=== PATIENT | male | born 1960 | race Caucasian/White ===

== ENCOUNTER 2017-06-20 23:52 | Observation (INO) ==
[2017-06-21 02:40] LABS: Basophils # 0.1 10*3/uL (0.0-0.2); Basophils % 0.6 % (0.0-0.8); Eosinophils # 0.4 10*3/uL (0.0-0.87); Eosinophils % 2.9 % (0.00-10.9); Hematocrit 39.3 VOL% (42.0-52.0); Hemoglobin 12.8 GM/DL (14.0-18.0); Immature Granulocytes % 0.7 %; Lymphocytes % 14.4 % (21.2-54.2); Mean Corpuscular HGB Conc 32.6 GM/DL (32-36); Mean Corpuscular Hemoglobin 27 PG (27-34); Mean Corpuscular Volume 84.2 FL (87-102); Mean Platelet Volume 9.7 FL (9.6-12.0); Monocytes # 1.3 10*3/uL (0.11-0.8); Monocytes % 9.4 % (1.7-12.7); Neutrophils # 9.8 10*3/uL (1.4-7.4); Platelet Count 256 T/CUMM (130-400); Red Blood Count 4.67 MC/CUMM (3.8-5.5); Red Cell Distribution Width 13.6 % (9.3-17.3); White Blood Count 13.6 T/CUMM (4-12)
[2017-06-21 03:06] LABS: Albumin 3.6 G/DL (3.4-5.0); Bilirubin,Total 0.5 MG/DL (0.2-1.0); Calcium 8.6 MG/DL (8.5-10.1); Osmolality,Calculated 275.7 MOS/KG (273-304); Potassium 3.9 MMOL/L (3.5-5.1); Total Protein 7.3 G/DL (6.4-8.3)
[2017-06-21] MEDS ORDERED: ONDANSETRON 4 MG/2 ML VIAL IV PRN (04:01)
[2017-06-21] MEDS ORDERED: ACETAMINOPHEN 325 MG TABLET PO PRN (04:01)
[2017-06-21 07:34] LABS: Basophils # 0.1 10*3/uL (0.0-0.2); Basophils % 0.6 % (0.0-0.8); Eosinophils # 0.4 10*3/uL (0.0-0.87); Eosinophils % 3.3 % (0.00-10.9); Hematocrit 37.9 VOL% (42.0-52.0); Hemoglobin 12.6 GM/DL (14.0-18.0); Immature Granulocytes % 0.9 %; Lymphocytes # 1.9 10*3/uL (1.4-4.0); Lymphocytes % 17.1 % (21.2-54.2); Mean Corpuscular HGB Conc 33.2 GM/DL (32-36); Mean Corpuscular Hemoglobin 28 PG (27-34); Mean Corpuscular Volume 82.8 FL (87-102); Mean Platelet Volume 10.1 FL (9.6-12.0); Monocytes # 0.9 10*3/uL (0.11-0.8); Monocytes % 8.3 % (1.7-12.7); Neutrophils # 7.6 10*3/uL (1.4-7.4); Neutrophils % 69.8 % (38.7-73.9); Platelet Count 249 T/CUMM (130-400); Red Blood Count 4.58 MC/CUMM (3.8-5.5); Red Cell Distribution Width 13.6 % (9.3-17.3); White Blood Count 10.8 T/CUMM (4-12)
[2017-06-21 08:15] VITALS: BP 134/65
== END 2017-06-21 12:01 | disposition home or self-care (01) ==
LOC: N.ED 23:52 → N.EDINP 23:52 → N.2E 06-21 03:48
PROVIDERS: ADMIT Internal Medicine; ATTEND Internal Medicine

== ENCOUNTER 2017-06-23 18:31 | Inpatient (IN) ==
[2017-06-23] MEDS ORDERED: SODIUM CHLORIDE 0.9% 1,000 ML IV PRN (18:37)
[2017-06-23] MEDS ORDERED: SODIUM CHLORIDE 0.9% 2,000 ML IV STA (18:37)
[2017-06-23] MEDS ORDERED: ONDANSETRON 4 MG/2 ML VIAL IV STA (18:37)
[2017-06-23 18:46] LABS: Basophils # 0.1 10*3/uL (0.0-0.2); Basophils % 0.9 % (0.0-0.8); Eosinophils # 0.6 10*3/uL (0.0-0.87); Eosinophils % 3.7 % (0.00-10.9); Hematocrit 33.5 VOL% (42.0-52.0); Hemoglobin 10.9 GM/DL (14.0-18.0); Immature Granulocytes % 0.5 %; Immature Granulocytes Absolute 0.08 #; Lymphocytes # 4.3 10*3/uL (1.4-4.0); Lymphocytes % 28.5 % (21.2-54.2); Mean Corpuscular HGB Conc 32.5 GM/DL (32-36); Mean Corpuscular Hemoglobin 28 PG (27-34); Mean Corpuscular Volume 85.5 FL (87-102); Mean Platelet Volume 9.9 FL (9.6-12.0); Monocytes # 1.5 10*3/uL (0.11-0.8); Monocytes % 10.1 % (1.7-12.7); Neutrophils # 8.6 10*3/uL (1.4-7.4); Neutrophils % 56.3 % (38.7-73.9); Platelet Count 344 T/CUMM (130-400); Red Blood Count 3.92 MC/CUMM (3.8-5.5); Red Cell Distribution Width 13.7 % (9.3-17.3); White Blood Count 15.2 T/CUMM (4-12)
[2017-06-23 19:04] LABS: Alanine Aminotransferase 24 U/L (16-61); Albumin 3.1 G/DL (3.4-5.0); Alkaline Phosphatase 69 U/L (45-117); Aspartate Amino Transferase 11 U/L (0-37); Blood Urea Nitrogen 14 MG/DL (7-18); Calcium 8.1 MG/DL (8.5-10.1); Glucose 154 MG/DL (74-106); Osmolality,Calculated 280.5 MOS/KG (273-304); Sodium 139 MMOL/L (136-145); Total Protein 6.2 G/DL (6.4-8.3); Troponin I Only < 0.015 NG/ML (0.00-0.045)
[2017-06-23 19:05] LABS: PT Patient Result 10.3 SECS; Partial Thromboplastin Time < 21.0 SECS (0-40)
[2017-06-23] MEDS ORDERED: SODIUM CHLORIDE 0.9% 250 ML IV STA (19:19)
[2017-06-23] MEDS: SODIUM CHLORIDE 0.9% 1,000 ML IV STA ×2 (19:30→19:48)
[2017-06-23] MEDS ORDERED: ONDANSETRON 4 MG/2 ML VIAL IV PRN (19:48)
[2017-06-23] MEDS ORDERED: ONDANSETRON 4 MG/2 ML VIAL ONE (20:18)
[2017-06-23] MEDS ORDERED: POTASSIUM CHLORIDE RIDER 100 ML IV ONE (20:34)
[2017-06-23] MEDS: SODIUM CHLORIDE 0.9% 1,000 ML IV SCH ×2 (21:00→22:00)
[2017-06-23] MEDS: POTASSIUM CHLORIDE RIDER 10 MEQ in PREMIX 1 EACH IV SCH (21:00)
[2017-06-23 23:33] LABS: Hematocrit 33.6 VOL% (42.0-52.0); Hemoglobin 11.1 GM/DL (14.0-18.0)
[2017-06-24 04:29] LABS: Calcium 7.3 MG/DL (8.5-10.1); Magnesium 1.8 MG/DL (1.8-2.4); Osmolality,Calculated 278.4 MOS/KG (273-304); Potassium 4.5 MMOL/L (3.5-5.1)
[2017-06-24 04:36] LABS: Hematocrit 32.7 VOL% (42.0-52.0); Hemoglobin 10.3 GM/DL (14.0-18.0)
[2017-06-24] MEDS: POTASSIUM CHLORIDE RIDER 10 MEQ in PREMIX 1 EACH IV SCH (05:58)
[2017-06-24] MEDS: SODIUM CHLORIDE 0.9% 1,000 ML IV SCH ×4 (05:58→18:05)
[2017-06-24 06:32] LABS: Hematocrit 29.6 VOL% (42.0-52.0); Hemoglobin 10.1 GM/DL (14.0-18.0)
[2017-06-24 10:41] LABS: Hematocrit 30.1 VOL% (42.0-52.0); Hemoglobin 10.1 GM/DL (14.0-18.0)
[2017-06-24] MEDS ORDERED: SODIUM PHOSPHATE ENEMA 133 ML BOTTLE RECTAL ONE (11:11)
[2017-06-24 14:44] LABS: Hematocrit 28.8 VOL% (42.0-52.0); Hemoglobin 9.5 GM/DL (14.0-18.0)
[2017-06-24] MEDS ORDERED: MORPHINE 2 MG/1 ML SYRINGE IV PRN (15:05)
[2017-06-24 18:17] LABS: Hematocrit 28.7 VOL% (42.0-52.0); Hemoglobin 9.8 GM/DL (14.0-18.0)
[2017-06-24 22:11] LABS: Hematocrit 28.1 VOL% (42.0-52.0); Hemoglobin 9.3 GM/DL (14.0-18.0)
[2017-06-25] MEDS: SODIUM CHLORIDE 0.9% 1,000 ML IV SCH ×3 (01:49→17:42)
[2017-06-25 05:47] LABS: Hematocrit 27.1 VOL% (42.0-52.0); Hemoglobin 8.7 GM/DL (14.0-18.0)
[2017-06-25] MEDS ORDERED: SODIUM PHOSPHATE ENEMA 133 ML BOTTLE RECTAL ONE (06:00)
[2017-06-25 06:35] LABS: Hematocrit 27.2 VOL% (42.0-52.0); Hemoglobin 8.9 GM/DL (14.0-18.0)
[2017-06-25 10:18] LABS: Hemoglobin 9.6 GM/DL (14.0-18.0)
[2017-06-25] MEDS ORDERED: LORazepam 2 MG/1 ML VIAL IV PRN (10:39)
[2017-06-25] MEDS: ATORVASTATIN 20 MG TABLET PO SCH (11:05)
[2017-06-25 14:29] LABS: Hematocrit 26.6 VOL% (42.0-52.0)
[2017-06-25] MEDS: amLODIPine 10 MG TABLET PO SCH (15:37)
[2017-06-25] MEDS: LISINOPRIL 5 MG TABLET PO SCH (15:38)
[2017-06-25 18:51] LABS: Hematocrit 27.7 VOL% (42.0-52.0)
[2017-06-25 22:33] LABS: Hemoglobin 8.2 GM/DL (14.0-18.0)
[2017-06-26] MEDS: SODIUM CHLORIDE 0.9% 1,000 ML IV SCH ×3 (01:04→21:49)
[2017-06-26 04:17] LABS: Basophils # 0.1 10*3/uL (0.0-0.2); Basophils % 0.7 % (0.0-0.8); Eosinophils # 0.3 10*3/uL (0.0-0.87); Eosinophils % 3.6 % (0.00-10.9); Hematocrit 24.8 VOL% (42.0-52.0); Immature Granulocytes % 0.9 %; Immature Granulocytes Absolute 0.08 #; Lymphocytes # 1.9 10*3/uL (1.4-4.0); Lymphocytes % 22.6 % (21.2-54.2); Mean Corpuscular HGB Conc 32.3 GM/DL (32-36); Mean Corpuscular Hemoglobin 28 PG (27-34); Mean Corpuscular Volume 86.4 FL (87-102); Mean Platelet Volume 10.3 FL (9.6-12.0); Monocytes % 11.6 % (1.7-12.7); Neutrophils # 5.1 10*3/uL (1.4-7.4); Neutrophils % 60.6 % (38.7-73.9); Platelet Count 186 T/CUMM (130-400); Red Blood Count 2.87 MC/CUMM (3.8-5.5); Red Cell Distribution Width 14.3 % (9.3-17.3); White Blood Count 8.5 T/CUMM (4-12)
[2017-06-26] MEDS: LISINOPRIL 5 MG TABLET PO SCH (10:39)
[2017-06-26] MEDS: amLODIPine 10 MG TABLET PO SCH (10:39)
[2017-06-26] MEDS: ATORVASTATIN 20 MG TABLET PO SCH (10:39)
[2017-06-26 14:30] LABS: Hematocrit 26.6 VOL% (42.0-52.0); Hemoglobin 8.5 GM/DL (14.0-18.0)
[2017-06-26 20:07] LABS: Hematocrit 25.3 VOL% (42.0-52.0); Hemoglobin 8.3 GM/DL (14.0-18.0)
[2017-06-27 03:22] LABS: Hematocrit 25.6 VOL% (42.0-52.0); Hemoglobin 8.6 GM/DL (14.0-18.0)
[2017-06-27] MEDS: SODIUM CHLORIDE 0.9% 1,000 ML IV SCH (03:41)
[2017-06-27 07:35] VITALS: BP 139/74
[2017-06-27] MEDS: amLODIPine 10 MG TABLET PO SCH (08:34)
[2017-06-27] MEDS: LISINOPRIL 5 MG TABLET PO SCH (08:34)
[2017-06-27] MEDS: ATORVASTATIN 20 MG TABLET PO SCH (08:34)
== END 2017-06-27 10:30 | disposition home or self-care (01) | DRG 921 ==
LOC: EDBD → EDUNIT# → N.ED 18:31 → N.EDINP 19:48 → SUPCPDRO 19:49 → N.CC 21:51 → N.3E 06-24 17:20
PROVIDERS: ADMIT Hospitalist; ATTEND Hospitalist

== ENCOUNTER 2020-12-29 14:32 | Inpatient (IN) ==
[2020-12-29] MEDS ORDERED: SODIUM CHLORIDE 0.9% 1,000 ML IV STA (17:00)
[2020-12-29] MEDS ORDERED: MORPHINE 4 MG/1 ML VIAL IV ONE (17:02)
[2020-12-29] MEDS ORDERED: PIPERACILLIN/TAZOBACTAM 3,375 MG in SODIUM CHLORIDE 0.9% 100 ML IV STA (17:02)
[2020-12-29] MEDS ORDERED: ONDANSETRON 4 MG/2 ML VIAL IV STA (17:02)
[2020-12-29 17:59] LABS: Basophils # 0.1 10*3/uL (0.0-0.2); Basophils % 0.2 % (0.0-0.8); Eosinophils # 0.1 10*3/uL (0.0-0.87); Eosinophils % 0.2 % (0.00-10.9); Hematocrit 38.5 VOL% (42.0-52.0); Hemoglobin 12.7 GM/DL (14.0-18.0); Immature Granulocytes % 0.8 %; Immature Granulocytes Absolute 0.16 #; Lymphocytes # 1.3 10*3/uL (1.4-4.0); Lymphocytes % 6.3 % (21.2-54.2); Mean Corpuscular Volume 87.3 FL (87-102); Mean Platelet Volume 9.3 FL (9.6-12.0); Monocytes % 10.5 % (1.7-12.7); Platelet Count 245 T/CUMM (130-400); Red Blood Count 4.41 MC/CUMM (3.8-5.5); White Blood Count 20.6 T/CUMM (4-12)
[2020-12-29 18:11] LABS: Albumin 3.1 G/DL (3.4-5.0); Bilirubin,Total 1.5 MG/DL (0.2-1.0); Calcium 8.7 MG/DL (8.5-10.1); Osmolality,Calculated 258.8 MOS/KG (273-304); Potassium 3.8 MMOL/L (3.5-5.1); Total Protein 7.2 G/DL (6.4-8.2)
[2020-12-29 19:28] LABS: Band Neutrophils 2 % (0-10); Lymphocytes 6 % (20-55); Segmented Neutrophils 84 % (50-85); Total Cells Counted 100
[2020-12-29 19:29] LABS: Hypochromasia 1+; Platelet Estimate Increased; Polychromasia Slight
[2020-12-29 20:05] LABS: Bilirubin,Urine Negative (Negative); Blood, Urine Negative (Negative); Glucose,Urine (UA) Negative (Negative); Ketones,Urine 20 mg/dL (Negative); Mucus,Urine Occasional /LPF (Occasional); Nitrite,Urine Negative (Negative); Protein,Urine Negative; RBC,Urine 2 /HPF (0-4); Urine Appearance CLEAR (Clear); Urine Color Amber (Yellow); Urine Specific Gravity 1.012 (1.001-1.035)
[2020-12-29] MEDS ORDERED: GLUCAGON 1 MG VIAL IM PRN (22:08)
[2020-12-29] MEDS ORDERED: ONDANSETRON 4 MG/2 ML VIAL IV PRN (22:08)
[2020-12-29] MEDS ORDERED: ACETAMINOPHEN 325 MG TABLET PO PRN (22:08)
[2020-12-29] MEDS ORDERED: DEXTROSE 50% 25 GM/50 ML VIAL IV PRN (22:08)
[2020-12-29] MEDS: CIPROFLOXACIN INJ 400 MG/200 ML PREMIX IV SCH (22:34)
[2020-12-29] MEDS: SODIUM CHLORIDE 0.9% 1,000 ML IV SCH (22:34)
[2020-12-29] MEDS: metroNIDAZOLE INJ 500 MG/100 ML PREMIX IV SCH (23:52)
[2020-12-30 05:45] LABS: Basophils # 0.1 10*3/uL (0.0-0.2); Basophils % 0.3 % (0.0-0.8); Eosinophils # 0.1 10*3/uL (0.0-0.87); Eosinophils % 0.3 % (0.00-10.9); Hematocrit 40.3 VOL% (42.0-52.0); Hemoglobin 13.3 GM/DL (14.0-18.0); Lymphocytes # 1.2 10*3/uL (1.4-4.0); Lymphocytes % 5.9 % (21.2-54.2); Mean Corpuscular Volume 88.8 FL (87-102); Mean Platelet Volume 9.2 FL (9.6-12.0); Monocytes % 11.1 % (1.7-12.7); Neutrophils % 81.4 % (38.7-73.9); Platelet Count 201 T/CUMM (130-400); Red Blood Count 4.54 MC/CUMM (3.8-5.5); Red Cell Distribution Width 13.3 % (9.3-17.3); White Blood Count 20.3 T/CUMM (4-12)
[2020-12-30 06:08] LABS: Lymphocytes 6 % (20-55); Platelet Estimate Adequate; Segmented Neutrophils 83 % (50-85); Total Cells Counted 100
[2020-12-30 06:23] LABS: Albumin 2.9 G/DL (3.4-5.0); Bilirubin,Total 1.6 MG/DL (0.2-1.0); Calcium 8.6 MG/DL (8.5-10.1); Osmolality,Calculated 270.8 MOS/KG (273-304); Potassium 4.2 MMOL/L (3.5-5.1); Total Protein 6.9 G/DL (6.4-8.2)
[2020-12-30] MEDS: metroNIDAZOLE INJ 500 MG/100 ML PREMIX IV SCH ×3 (06:37→22:52)
[2020-12-30] MEDS ORDERED: CLINDAMYCIN INJ 900 MG/50 ML PREMIX IV ONE (06:55)
[2020-12-30] MEDS ORDERED: BUPIVACAINE MPF 0.25% 30 ML VIAL ONE (08:26)
[2020-12-30] MEDS ORDERED: LIDOCAINE 1%/EPI INJ 20 ML VIAL ONE (08:26)
[2020-12-30] MEDS ORDERED: LACTATED RINGERS 1,000 ML IV SCH (08:30)
[2020-12-30] MEDS ORDERED: fentaNYL 100 MCG/2 ML VIAL ONE ×2 (08:37→09:10)
[2020-12-30] MEDS ORDERED: ONDANSETRON 4 MG/2 ML VIAL ONE (08:37)
[2020-12-30] MEDS ORDERED: LIDOCAINE 2% 5 ML VIAL ONE (08:37)
[2020-12-30] MEDS ORDERED: DEXAMETHASONE 4 MG/1 ML VIAL ONE (08:37)
[2020-12-30] MEDS ORDERED: propofoL 200 MG/20 ML VIAL IV ONE (08:37)
[2020-12-30] MEDS ORDERED: SEVOFLURANE 1 UNIT/15 MINUTE INH ONE ×2 (08:40→09:33)
[2020-12-30] MEDS ORDERED: MIDAZOLAM 2 MG/2 ML VIAL ONE (08:46)
[2020-12-30] MEDS ORDERED: PANTOPRAZOLE 40 MG VIAL IV SCH (09:00)
[2020-12-30] MEDS ORDERED: PHENYLEPHRINE 1 MG/10 ML SYRINGE IV ONE (09:04)
[2020-12-30] MEDS ORDERED: ePHEDrine 50 MG/ML VIAL ONE (09:18)
[2020-12-30] MEDS: CYANOCOBALAMIN 100 MCG TABLET PO SCH (10:55)
[2020-12-30] MEDS: PANTOPRAZOLE 40 MG TABLET PO SCH (10:55)
[2020-12-30] MEDS: CIPROFLOXACIN INJ 400 MG/200 ML PREMIX IV SCH ×2 (10:56→21:40)
[2020-12-30] MEDS: TAMSULOSIN 0.4 MG CAPSULE PO SCH (10:56)
[2020-12-30] MEDS: amLODIPine 10 MG TABLET PO SCH (10:56)
[2020-12-30] MEDS: lisinopriL 10 MG TABLET PO SCH (10:56)
[2020-12-30] MEDS: SODIUM CHLORIDE 0.9% 1,000 ML IV SCH ×3 (11:06→20:09)
[2020-12-30] MEDS: ENOXAPARIN 40 MG/0.4 ML SYRINGE SUBCUT SCH (13:52)
[2020-12-30] MEDS: SIMVASTATIN 40 MG TABLET PO SCH (20:09)
[2020-12-31] MEDS: metroNIDAZOLE INJ 500 MG/100 ML PREMIX IV SCH ×3 (06:33→23:51)
[2020-12-31 07:48] LABS: Basophils # 0.1 10*3/uL (0.0-0.2); Basophils % 0.3 % (0.0-0.8); Eosinophils % 0.2 % (0.00-10.9); Hematocrit 36.8 VOL% (42.0-52.0); Hemoglobin 12.2 GM/DL (14.0-18.0); Immature Granulocytes % 1.6 %; Immature Granulocytes Absolute 0.29 #; Lymphocytes # 1.2 10*3/uL (1.4-4.0); Lymphocytes % 6.4 % (21.2-54.2); Mean Corpuscular HGB Conc 33.2 GM/DL (32-36); Mean Corpuscular Volume 86.8 FL (87-102); Mean Platelet Volume 9.7 FL (9.6-12.0); Monocytes % 7.1 % (1.7-12.7); Neutrophils % 84.4 % (38.7-73.9); Platelet Count 223 T/CUMM (130-400); Red Blood Count 4.24 MC/CUMM (3.8-5.5); Red Cell Distribution Width 13.4 % (9.3-17.3); White Blood Count 18.2 T/CUMM (4-12)
[2020-12-31] MEDS: SODIUM CHLORIDE 0.9% 1,000 ML IV SCH ×2 (09:37→16:35)
[2020-12-31] MEDS: CIPROFLOXACIN INJ 400 MG/200 ML PREMIX IV SCH ×2 (09:38→22:26)
[2020-12-31] MEDS: amLODIPine 10 MG TABLET PO SCH (09:40)
[2020-12-31] MEDS: CYANOCOBALAMIN 100 MCG TABLET PO SCH (09:40)
[2020-12-31] MEDS: lisinopriL 10 MG TABLET PO SCH (09:40)
[2020-12-31] MEDS: TAMSULOSIN 0.4 MG CAPSULE PO SCH (09:40)
[2020-12-31] MEDS: PANTOPRAZOLE 40 MG TABLET PO SCH (09:40)
[2020-12-31] MEDS: ENOXAPARIN 40 MG/0.4 ML SYRINGE SUBCUT SCH (13:50)
[2020-12-31] MEDS: HYDROmorphone 2 MG/1 ML VIAL IV PRN (14:38)
[2020-12-31] MEDS ORDERED: VANCOMYCIN INJ 2,000 MG in SODIUM CHLORIDE 0.9% 250 ML IV SCH (16:00)
[2020-12-31] MEDS: POLYETHYLENE GLYCOL POWDER 17 GM PACK PO SCH ×2 (16:36→20:03)
[2020-12-31] MEDS: VANCOMYCIN INJ 2,000 MG in SODIUM CHLORIDE 0.9% 500 ML IV SCH (17:19)
[2020-12-31] MEDS: SIMVASTATIN 40 MG TABLET PO SCH (20:03)
[2021-01-01] MEDS: VANCOMYCIN INJ 2,000 MG in SODIUM CHLORIDE 0.9% 500 ML IV SCH ×2 (04:18→16:24)
[2021-01-01] MEDS: metroNIDAZOLE INJ 500 MG/100 ML PREMIX IV SCH ×3 (06:55→23:13)
[2021-01-01 07:52] LABS: Basophils # 0.1 10*3/uL (0.0-0.2); Basophils % 1.2 % (0.0-0.8); Eosinophils # 0.2 10*3/uL (0.0-0.87); Eosinophils % 2.1 % (0.00-10.9); Hematocrit 35.9 VOL% (42.0-52.0); Immature Granulocytes % 4.8 %; Immature Granulocytes Absolute 0.42 #; Lymphocytes # 1.1 10*3/uL (1.4-4.0); Lymphocytes % 12.9 % (21.2-54.2); Mean Corpuscular HGB Conc 33.4 GM/DL (32-36); Mean Corpuscular Volume 87.3 FL (87-102); Mean Platelet Volume 9.2 FL (9.6-12.0); Platelet Count 247 T/CUMM (130-400); Red Blood Count 4.11 MC/CUMM (3.8-5.5); Red Cell Distribution Width 13.7 % (9.3-17.3); White Blood Count 8.7 T/CUMM (4-12)
[2021-01-01] MEDS: SODIUM CHLORIDE 0.9% 1,000 ML IV SCH ×3 (08:12→11:13)
[2021-01-01] MEDS: POLYETHYLENE GLYCOL POWDER 17 GM PACK PO SCH (10:21)
[2021-01-01] MEDS: CYANOCOBALAMIN 100 MCG TABLET PO SCH (10:21)
[2021-01-01] MEDS: PANTOPRAZOLE 40 MG TABLET PO SCH (10:21)
[2021-01-01] MEDS: amLODIPine 10 MG TABLET PO SCH (10:21)
[2021-01-01] MEDS: lisinopriL 10 MG TABLET PO SCH (10:22)
[2021-01-01] MEDS: CIPROFLOXACIN INJ 400 MG/200 ML PREMIX IV SCH ×2 (10:22→22:11)
[2021-01-01] MEDS: TAMSULOSIN 0.4 MG CAPSULE PO SCH (10:22)
[2021-01-01] MEDS: HYDROmorphone 2 MG/1 ML VIAL IV PRN (11:28)
[2021-01-01] MEDS: ENOXAPARIN 40 MG/0.4 ML SYRINGE SUBCUT SCH (14:30)
[2021-01-01] MEDS: SIMVASTATIN 40 MG TABLET PO SCH (20:27)
[2021-01-02] MEDS: SODIUM CHLORIDE 0.9% 1,000 ML IV SCH (04:04)
[2021-01-02] MEDS: VANCOMYCIN INJ 2,000 MG in SODIUM CHLORIDE 0.9% 500 ML IV SCH (04:05)
[2021-01-02] MEDS: metroNIDAZOLE INJ 500 MG/100 ML PREMIX IV SCH (07:00)
[2021-01-02 07:10] LABS: Calcium 8.3 MG/DL (8.5-10.1); Osmolality,Calculated 276.4 MOS/KG (273-304); Potassium 3.6 MMOL/L (3.5-5.1)
[2021-01-02 07:34] VITALS: BP 137/91
[2021-01-02] MEDS: TAMSULOSIN 0.4 MG CAPSULE PO SCH (09:08)
[2021-01-02] MEDS: amLODIPine 10 MG TABLET PO SCH (09:08)
[2021-01-02] MEDS: lisinopriL 10 MG TABLET PO SCH (09:08)
[2021-01-02] MEDS: PANTOPRAZOLE 40 MG TABLET PO SCH (09:08)
[2021-01-02] MEDS: CYANOCOBALAMIN 100 MCG TABLET PO SCH (09:08)
[2021-01-02] MEDS: POLYETHYLENE GLYCOL POWDER 17 GM PACK PO SCH (09:09)
[2021-01-02] MEDS: CIPROFLOXACIN INJ 400 MG/200 ML PREMIX IV SCH (09:09)
== END 2021-01-02 11:49 | disposition home health service (06) | DRG 357 ==
LOC: N.EDINP 14:32 → N.ED 14:32 → N.EDINP 22:03 → N.3E 22:06
PROVIDERS: ADMIT Student in an Organized Health Care Education/Training Program; ATTEND Student in an Organized Health Care Education/Training Program